=== PATIENT | male | born 1975 | race American Indian/Alaskan Native ===

== ENCOUNTER 2021-08-08 07:19 | Emergency (ER) | payer OTHER ==
[2021-08-08 07:33] VITALS: BP 155/116
[2021-08-08] MEDS ORDERED: ASPIRIN EC 325 MG TAB PO ONE (08:00)
--- NOTE | 2021-08-08 08:06 | Emergency Department Report ---
ED Chest Pain HPI - General Chief Complaint: Chest Pain Stated Complaint: CHEST PAIN, LIGHT HEADED Time Seen by Provider: 08/08/21 07:38 Source: patient Mode of arrival: Ambulatory Limitations: No Limitations - History of Present Illness Initial Comments: Patient is a 45-year-old male here in the emergency department complaining of chest pain and lightheadedness. Patient reports that his symptoms started at 5 AM. He notes that he has been under pressure. He states his symptoms are consistent with chest pressure in the middle of his chest that does not radiate. Pain was 5 out of 10 when it first started and is now a 3 or 4. Patient denies any family history of cardiac disease, no hypertension diabetes. He denies any shortness of breath, fevers chills. He has not had any exposure to COVID-19. He has no history of previous NM Treatments Prior to Arrival: none - Related Data Allergies Allergy/AdvReac Type Severity Reaction Status Date / Time No Known Allergies Allergy Verified 08/08/21 07:26 Heart Score - HEART Score History: Slightly suspicious EKG: Non-specific Age: < 45 Risk factors: No known risk factors Troponin: < normal limit (unable to assess as patient did not want labs) HEART Score: 1 - EKG Read Time Time EKG Completed: 07:31 EKG Read Time: 07:36 ED Review of Systems ROS: Stated complaint: CHEST PAIN, LIGHT HEADED Other details as noted in HPI Constitutional: denies: chills, fever Eyes: denies: eye pain ENT: denies: throat pain Respiratory: denies: cough, shortness of breath Cardiovascular: chest pain. denies: orthopnea Endocrine: no symptoms reported Gastrointestinal: denies: abdominal pain, nausea, vomiting Genitourinary: denies: urgency, dysuria Musculoskeletal: denies: back pain Skin: denies: rash Neurological: denies: headache, weakness, abnormal gait Psychiatric: denies: anxiety, depression Hematological/Lymphatic: denies: easy bleeding ED Past Medical Hx - Past Medical History Previous Medical History?: Yes Hx Hypertension: Yes - Surgical History Past Surgical History?: No ED Physical Exam - General Limitations: No Limitations General appearance: alert, in no apparent distress - Head Head exam: Present: atraumatic, normocephalic - Eye Eye exam: Present: normal appearance - ENT ENT exam: Present: mucous membranes moist - Neck Neck exam: Present: normal inspection - Respiratory Respiratory exam: Present: normal lung sounds bilaterally. Absent: respiratory distress - Cardiovascular Cardiovascular Exam: Present: regular rate, normal rhythm. Absent: systolic murmur, diastolic murmur, rubs, gallop - GI/Abdominal GI/Abdominal exam: Present: soft, normal bowel sounds - Rectal Rectal exam: Present: deferred - Extremities Exam Extremities exam: Present: normal inspection - Back Exam Back exam: Present: normal inspection - Neurological Exam Neurological exam: Present: alert, oriented X3, CN II-XII intact, normal gait. Absent: motor sensory deficit - Psychiatric Psychiatric exam: Present: normal affect, normal mood - Skin Skin exam: Present: warm, dry, intact, normal color. Absent: rash ED Course Vital Signs 08/08/21 07:30 Temperature 99.2 F Pulse Rate 102 H Respiratory 16 Rate Blood Pressure 155/116 [Left] O2 Sat by Pulse 98 Oximetry ED Medical Decision Making - EKG Data -: EKG Interpreted by Me EKG shows normal: sinus rhythm Rate: normal - EKG Data When compared to previous EKG there are: previous EKG unavailable Interpretation: LVH, other (LAFB) - Medical Decision Making Patient is a 45-year-old male presents emergency department complaint of chest pain. Patient notes that pain started when he was under stress. Patient underwent EKG which shows sinus rhythm, left anterior fascicular block and possible LVH. I discussed with patient that he needs further work-up including lab testing with troponins, chest x-ray and a period of observation. Patient was given a dose of aspirin. At this time patient does not wish to stay for further evaluation. The risks were discussed. Patient has decided to leave AGAINST MEDICAL ADVICE. I have provided patient with a physician to follow-up with and have discussed that he will require further chest pain work-up with a stress test. Critical care attestation.: If time is entered above; I have spent that time in minutes in the direct care of this critically ill patient, excluding procedure time. ED Disposition Clinical Impression: Chest pain Disposition: LEFT AGAINST MEDICAL ADVICE Is pt being admited?: No Does the pt Need Aspirin: Yes Condition: Stable Instructions: Nonspecific Chest Pain, Adult, [id number], Pain Without a Known Cause Additional Instructions: Today you were offered further testing for your chest pain including labs, chest x-ray. At this time you did not want those things. We discussed the risks. If any of your symptoms worsen please return to the emergency department or call 911. Referrals: RU MATHUR MD [Staff Physician] - 24 Hours (For chest pain workup) Forms: Work/School Release Form(ED) Time of Disposition: 08:04 Print Language: SAMMARINESE
[2021-08-08] MEDS ORDERED: ASPIRIN 325 MG TAB ONE (08:17)
--- NOTE | 2021-08-10 13:09 | Electrocardiograph Report ---
[facility] Test Date: 2021-08-08 Test Time: 07:31:24 Pat Name: RAVINDRA HAMILTON Department: Room: Gender: M Rejector: SANDER : 1975 Requested By: KYLIE SCHULTE Order Number: [id number] Reading MD: Neri Marques Measurements Intervals Rake Rate: 80 P: 86 [place]: 164 QRS: -50 QRSD: 95 T: 23 QT: 365 QTc: 421 Interpretive Statements Sinus rhythm Left axis deviation Consider left ventricular hypertrophy No previous ECG available for comparison Electronically Signed On 08-10-2021 13:08:41 EST by Neri Marques
== END 2021-08-08 08:19 | disposition left against medical advice (07) ==
LOC: ED 07:19
DX: R07.9 Chest pain, unspecified (principal); I10 Essential (primary) hypertension
CPT/HCPCS: 93005; 93010; 99282